=== PATIENT | female | born 1985 | race Caucasian/White ===

== ENCOUNTER → 2021-02-01 18:04 | Observation (INO) ==
[~2021-02-01 18:04] MED LIST: Ringers Solution, Lactated 1,000 ML IVC ONE; Ringers Solution, Lactated 1,000 ML ONE
== END | disposition home or self-care (01) ==
LOC: 1NENULAB
PROVIDERS: ADMIT Advanced Practice Midwife; ATTEND Advanced Practice Midwife

== ENCOUNTER 2021-02-06 05:45 | Inpatient (IN) ==
[2021-02-06] MEDS ORDERED: Metoclopramide 10 MG/2 ML VIAL IVP ONE (05:51)
[2021-02-06] MEDS ORDERED: Famotidine 20 MG/2 ML VIAL IVP ONE (05:51)
[2021-02-06] MEDS: Ringers Solution, Lactated 1,000 ML IVC ONE ×2 (06:22→07:30)
[2021-02-06] MEDS ORDERED: *HR* Morphine Sulfate/PF 10 MG/10 ML AMPUL ONE (06:31)
[2021-02-06] MEDS ORDERED: EPHEDrine 50 MG/ML VIAL ONE (06:31)
[2021-02-06] MEDS ORDERED: *HR* FentaNYL (PF) 100 MCG/2 ML VIAL ONE (06:31)
[2021-02-06 06:34] LABS: Basophils # 0.1 K/mcL (0.0-0.2); Basophils % 0.4 %; Eosinophils # 0.2 K/mcL (0.0-0.6); Eosinophils % 1.7 %; Hematocrit 40.8 % (35.3-44.9); Hemoglobin 13.3 g/dL (11.5-15.4); Immature Granulocytes % 1.6 % (0-4); Lymphocytes # 2.6 K/mcL (0.6-4.6); Mean Corpuscular HGB Conc 32.6 g/dL (31.6-35.5); Mean Corpuscular Hemoglobin 26.4 pg (28.0-33.3); Mean Platelet Volume 8.5 fL (9.4-12.4); Monocytes # 0.6 K/mcL (0.0-1.3); Monocytes % 5.5 %; Neutrophils # 7.7 K/mcL (1.6-8.9); Platelet Count 577 K/mcL (140-400); Red Blood Count 5.04 M/mcL (3.82-4.97); Red Cell Distribution Width 15.9 % (11.5-14.5); Segmented Neutrophils % 67.8 %; White Blood Count 11.4 K/mcL (4.3-11.1)
[2021-02-06] MEDS ORDERED: Clindamycin 900 MG/50 ML 900 MG/50 ML IV.SOLN IVPB ONE (06:45)
[2021-02-06] MEDS ORDERED: Ondansetron 4 MG/2 ML VIAL ONE (07:12)
[2021-02-06] MEDS ORDERED: *HR* Phenylephrine 10 MG/ML VIAL ONE (07:13)
[2021-02-06] MEDS ORDERED: *HR* Midazolam HCl 2 MG/2 ML VIAL ONE (07:14)
[2021-02-06] MEDS ORDERED: *HR* Oxytocin 10 UNIT/ML VIAL IM ONE ×2 (07:21→08:28)
[2021-02-06] MEDS ORDERED: Ketorolac 30 MG/ML VIAL ONE (07:21)
[2021-02-06] MEDS ORDERED: Ringers Solution, Lactated 1,000 ML ONE ×2 (07:23→08:28)
[2021-02-06 08:26] LABS: Amphetamine Screen,Urine Negative ng/mL (Cutoff=1000); Barbiturate Screen,Urine Negative ng/mL (Cutoff=200); Benzodiazepines Screen,Urine Negative ng/mL (Cutoff=200); Cannabinoid Screen,Urine Negative ng/mL (Cutoff = 50); Cocaine Screen,Urine Negative ng/mL (Cutoff= 300); Opiate Screen,Urine Negative ng/mL (Cutoff=300); Phencyclidine Screen,Urine Negative ng/mL (Cutoff=25)
[2021-02-06] MEDS ORDERED: *HR* Magnesium Sulfate 1 GM/2 ML VIAL ONE (08:37)
[2021-02-06] MEDS: *HR* HYDROmorphone (PF) 1 MG/ML SYRINGE IVP PRN ×3 (10:25→11:22)
[2021-02-06] MEDS ORDERED: *HR* Meperidine 25 MG/ML SYRINGE IVP PRN (11:19)
[2021-02-06] MEDS ORDERED: *HR* Meperidine 50 MG/ML SYRINGE ONE (11:39)
[2021-02-06] MEDS ORDERED: *HR* FentaNYL (PF) 250 MCG/5 ML VIAL ONE (12:08)
[2021-02-06] MEDS ORDERED: Ondansetron 4 MG/2 ML VIAL IVP PRN (13:00)
[2021-02-06] MEDS ORDERED: Metoclopramide 10 MG/2 ML VIAL IVP PRN (13:00)
[2021-02-06] MEDS ORDERED: NON-FORMULARY MEDICATION 1 EACH EACH (Prenatal Vitamin Tablet 1 TAB) PO SCH (13:00)
[2021-02-06] MEDS ORDERED: Simethicone 80 MG TAB.CHEW PO PRN (13:00)
[2021-02-06] MEDS ORDERED: Oxytocin 20 units/ LR 1000 mL 20 UNIT/1,000 ML BAG IVC SCH (13:00)
[2021-02-06] MEDS: Clindamycin 900 MG/50 ML 900 MG/50 ML IV.SOLN IVPB SCH (14:09)
[2021-02-06] MEDS: *HR* Buprenorphine HCl 8 MG TAB.SUBL SL SCH ×2 (14:13→22:13)
[2021-02-06] MEDS: Ibuprofen 600 MG TABLET PO SCH (17:34)
[2021-02-06] MEDS: Acetaminophen 325 MG TABLET PO SCH (17:34)
[2021-02-07] MEDS: Ibuprofen 600 MG TABLET PO SCH ×5 (00:14→23:58)
[2021-02-07] MEDS: Clindamycin 900 MG/50 ML 900 MG/50 ML IV.SOLN IVPB SCH ×2 (00:15→08:52)
[2021-02-07] MEDS: Acetaminophen 325 MG TABLET PO SCH ×4 (02:46→23:58)
[2021-02-07 06:23] LABS: Basophils % 0.2 %; Eosinophils # 0.2 K/mcL (0.0-0.6); Eosinophils % 1.2 %; Hematocrit 25.6 % (35.3-44.9); Immature Granulocytes % 0.7 % (0-4); Lymphocytes # 2.7 K/mcL (0.6-4.6); Mean Corpuscular HGB Conc 32.8 g/dL (31.6-35.5); Mean Corpuscular Hemoglobin 26.5 pg (28.0-33.3); Mean Corpuscular Volume 80.8 fL (83.0-100.0); Mean Platelet Volume 8.5 fL (9.4-12.4); Monocytes # 0.9 K/mcL (0.0-1.3); Monocytes % 7.6 %; Platelet Count 395 K/mcL (140-400); Red Blood Count 3.17 M/mcL (3.82-4.97); Red Cell Distribution Width 15.6 % (11.5-14.5); Segmented Neutrophils % 68.3 %; White Blood Count 12.2 K/mcL (4.3-11.1)
[2021-02-07 06:30] LABS: Hemoglobin 8.4 g/dL (11.5-15.4); Neutrophils # 8.3 K/mcL (1.6-8.9)
[2021-02-07 06:55] LABS: Platelet Estimate Normal (Normal); Reactive Lymphocytes Present (Not Present)
[2021-02-07 06:56] VITALS: O2SAT 98
[2021-02-07] MEDS: *HR* Buprenorphine HCl 8 MG TAB.SUBL SL SCH ×2 (08:50→21:06)
[2021-02-07] MEDS: Prenatal Vit/FA 1 EACH TABLET PO SCH (08:51)
[2021-02-08] MEDS: Acetaminophen 325 MG TABLET PO SCH (05:56)
[2021-02-08] MEDS: Ibuprofen 600 MG TABLET PO SCH (05:57)
[2021-02-08 07:40] VITALS: BP 119/75; PULSE 96; TEMP 98.4
[2021-02-08] MEDS: Prenatal Vit/FA 1 EACH TABLET PO SCH (09:25)
[2021-02-08] MEDS: *HR* Buprenorphine HCl 8 MG TAB.SUBL SL SCH (09:56)
== END 2021-02-08 11:15 | disposition home or self-care (01) | DRG 539 ==
LOC: 1NENULAB 05:45 → 1NENUOBS 10:40
PROVIDERS: ADMIT Obstetrics & Gynecology; ATTEND Obstetrics & Gynecology